=== PATIENT | female | born 1955 | race Caucasian/White ===

== ENCOUNTER → 2016-04-02 | Outpatient (CLI) | payer OTHER ==
--- NOTE | 2016-04-02 15:44 | MA ---
Screening Bilateral Digital Mammogram History: Screening. Breast parenchymal density: B. Technique: Four digital views of each breast are obtained including CC and oblique lateral Chris (im plant displaced) and non-Chris (implant not displaced) views. CAD is utilized using the iCAD product . Comparison: March 2015, January 2014 and December 2012. Findings: Bilateral breast implants are in place. No suspicious areas are identified. Impression: Negative mammogram. Routine screening is recommended in one year. BI-RADS : 1, Negative. [facility] will send a result letter to the patient. Negative mammography should not preclude additional workup of a clinically suspicious finding. The patient's information is entered into a reminder system with a target due date for her next mammo gram.
== END ==
LOC: BMCIMAGING 14:48
DX: Z12.31 Encounter for screening mammogram for malignant neoplasm of breast (principal)
CPT/HCPCS: G0202

== ENCOUNTER → 2017-01-30 | Outpatient (CLI) | payer OTHER | LOC: FIMAGING 11:25 | PROVIDERS: ATTEND Internal Medicine | DX: R05 Cough (principal) ==